=== PATIENT | female | born 1985 | race African-American/Black ===

== ENCOUNTER 2018-01-06 09:35 | Emergency (ER) | payer OTHER ==
[2018-01-06 09:55] LABS: URINE HCG POC HCG NEGATIVE (Negative)
[2018-01-06 09:55] LABS: BILIRUBIN,URINE NEGATIVE (NEG); CLARITY,URINE CLEAR; COLOR,URINE YELLOW; GLUCOSE,URINE NEGATIVE (NEG); NITRITE,URINE NEGATIVE (NEG); PROTEIN,URINE 30 mg/dL (NEG-TRACE)
[2018-01-06 10:06] LABS: BACTERIA,URINE FEW /HPF (0-FEW); RBC,URINE 20-40 /HPF (0-2); SQUAMOUS EPITHELIAL CELL,UR MOD /LPF
== END 2018-01-06 10:58 | disposition home or self-care (01) ==
LOC: ER 09:35
DX: R31.9 Hematuria, unspecified (principal); R35.0 Frequency of micturition; R39.15 Urgency of urination; Z88.0 Allergy status to penicillin; Z88.2 Allergy status to sulfonamides; F32.9 Major depressive disorder, single episode, unspecified; Z90.49 Acquired absence of other specified parts of digestive tract
CPT/HCPCS: 81001; 81025; 99283

== ENCOUNTER 2018-07-25 11:44 | Emergency (ER) | payer OTHER ==
[~2018-07-25] VITALS: Ht 162.6 cm; Wt 124.7 kg
[2018-07-25 11:45] VITALS: BP 143/95
[2018-07-25 12:40] LABS: INFLUENZA B PATIENT NEGATIVE (NEGATIVE)
[2018-07-25 12:42] LABS: INFLUENZA A PATIENT POSITIVE (NEGATIVE)
[2018-07-25] MEDS ORDERED: IBUP-1060 PO (13:07)
--- NOTE | 2018-07-25 13:08 | PHYS DOC ---
Past Medical History Past Medical History: Depression Past Surgical History: Cholecystectomy Alcohol Use: None Drug Use: None Adult General Chief Complaint Chief Complaint: FLU SYMPTOM HPI HPI Patient is a 32 year old female who presents to the ER with complaints of fever , cough, congestion, body aches, and fatigue that began today. Pt states that her children were diagnosed with influenza recently. She denies any shortness of breath, nausea, vomiting, diarrhea, or abdominal pain. Pt reports that she took 1 gm of tylenol about 30 minutes before coming to the ER. Review of Systems Review of Systems Constitutional: reports fever, chills, bodyaches, and fatigue Eyes: Denies change in visual acuity or eye pain [] HENT: Denies ear pain or sore throat, reports nasal congestion Respiratory: Denies wheezing or shortness of breath; see HPI Cardiovascular: No additional information not addressed in HPI [] GI: Denies abdominal pain, nausea, vomiting, or diarrhea [] Musculoskeletal: reports body aches Integument: Denies rash or skin lesions [] Neurologic: Denies headache, focal weakness or sensory changes [] Allergies Allergies Allergies Coded Allergies Type Severity Reaction Last Updated Verified Penicillins Allergy Unknown 01/06/18 Yes Sulfa (Sulfonamide Antibiotics) Allergy Unknown 01/06/18 Yes Physical Exam Physical Exam Constitutional: Well developed, well nourished, no acute distress, ill appearing , obese HENT: Normocephalic, atraumatic, bilateral external ears normal, oropharynx moist, cobblestone appearance of posterior pharynx, no oral exudates, nose normal. [] Eyes: PERRLA, conjunctiva injected, no discharge. [] Neck: Normal range of motion, supple, no stridor. [] Cardiovascular:Heart rate regular rhythm, no murmur [] Lungs & Thorax: Bilateral breath sounds clear to auscultation [] Skin: Warm, dry, no erythema, no rash. [] Extremities: No cyanosis, no clubbing, ROM intact Neurologic: Alert and oriented X 3, normal motor function, normal sensory function, no focal deficits noted. [] Psychologic: Affect normal, judgement normal, mood normal. [] Current Patient Data Vital Signs Vital Signs Date Time Temp Pulse Resp B/P (MAP) Pulse Ox O2 Delivery O2 Flow Rate FiO2 07/25/18 11:45 98.9 115 18 143/95 (111) 100 Room Air 98.9 Lab Values Laboratory Tests Test 07/25/18 12:09 Influenza Type A Antigen Positive (NEGATIVE) Influenza Type B Antigen Negative (NEGATIVE) EKG EKG [] Radiology/Procedures Radiology/Procedures influenza A positive[] Course & Med Decision Making Course & Med Decision Making Pertinent Labs and Imaging studies reviewed. (See chart for details) [] Dragon Disclaimer Dragon Disclaimer This electronic medical record was generated, in whole or in part, using a voice recognition dictation system. Departure Departure Impression: Primary Impression: Influenza A Disposition: HOME, SELF-CARE Condition: STABLE Referrals: NO PCP (PCP) Patient Instructions: Influenza A (H1N1) Additional Instructions: Fill prescription(s) and use as directed. Recommend use of a Cool mist humidifier in room at bedtime. Alternate Tylenol or ibuprofen as needed for pain /fever. Increase clear fluids. Avoid airway triggers such as smoke, fragrance, dust, and pollen. May take [id number] cough suppressants as needed. Follow -up with your primary care doctor if symptoms persist, return to the ER if symptoms worsen. Scripts Ibuprofen (IBUPROFEN) 800 Mg Tablet 800 MG PO PRN Q6HRS PRN for INFLAMMATION for 5 Days, #40 TAB 0 Refills Prov: CAMILA SOSA APRN 07/25/18 CAMILA SOSA APRN Jul 25, 2018 13:08
== END 2018-07-25 13:12 | disposition home or self-care (01) ==
LOC: ER 11:44
DX: J10.1 Influenza due to other identified influenza virus with other respiratory manifestations (principal); Z88.0 Allergy status to penicillin; Z88.2 Allergy status to sulfonamides
CPT/HCPCS: 87804; 99283

== ENCOUNTER 2019-12-04 16:23 | Emergency (ER) | payer BC, MEDICAID ==
[~2019-12-04] VITALS: Ht 162.6 cm; Wt 134.0 kg
[~2019-12-04 16:23] MED LIST: IBUP-1060 PO
[2019-12-04] MEDS ORDERED: IV NORMAL SALINE 1000ML BAG 1,000 ML IV ONE (16:45)
[2019-12-04 16:58] LABS: BILIRUBIN,URINE NEGATIVE (NEG); CLARITY,URINE CLEAR; COLOR,URINE YELLOW; NITRITE,URINE NEGATIVE (NEG); PH,URINE 7.5 (<5.0-8.0); PROTEIN,URINE NEGATIVE (NEG-TRACE)
[2019-12-04 17:04] LABS: BARBITURATES NEG (NEG); BENZODIAZEPINES NEG (NEG); CANNABINOIDS NEG (NEG); COCAINE NEG (NEG); METHADONE NEG (NEG); OPIATES NEG (NEG); PHENCYCLIDINE NEG (NEG)
[2019-12-04 17:06] LABS: BACTERIA,URINE FEW /HPF (0-FEW); RBC,URINE RARE /HPF (0-2); SQUAMOUS EPITHELIAL CELL,UR MANY /LPF
--- NOTE | 2019-12-04 17:06 | PHYS DOC ---
Past Medical History Past Medical History: Depression Past Surgical History: Cholecystectomy Smoking Status: Never Smoker Alcohol Use: None Drug Use: None General Adult EDM: Chief Complaint: DEHYDRATION HPI: HPI: Patient is a 34 year old female who presents with states she was moving to a different home and been out in the heat a lot and Monday started having nausea and vomiting. She states that Monday she started feeling better but was a bit nauseated but is drinking plenty of fluids and is eating and keeping everything down. She states she has not vomited since Monday night. She states she is just getting the occasional hot flash and states that she just feels dehydrated. She states every now and then she will get the palpitations with a hot flash. Patient states she is feeling much better. She denies pain, abdominal pain, new nausea, new vomiting, chest pain, shortness of air, fever, cough, dysuria, dizziness, headache, vision changes, LOC, numbness or tingling. Review of Systems: Review of Systems: Constitutional: Denies fever or chills. Hot flashes [] Eyes: Denies change in visual acuity. [] HENT: Denies nasal congestion or sore throat. [] Respiratory: Denies cough or shortness of breath. [] Cardiovascular: Denies chest pain or edema. Palpitations [] GI: Denies abdominal pain.+ nausea, +vomiting, denies bloody stools or diarrhea. [] : Denies dysuria. [] Musculoskeletal: Denies back pain or joint pain. [] Integument: Denies rash. [] Neurologic: Denies headache, focal weakness or sensory changes. [] Endocrine: Denies polyuria or polydipsia. [] Lymphatic: Denies swollen glands. [] Psychiatric: Denies depression or anxiety. [] Heart Score: HEART Score for Chest Pain: HEART Score for Chest Pain Response (Comments) Value History Slighlty/Non-Suspicious 0 ECG Normal 0 Age < 45 0 Risk Factors 1 or 2 Risk Factors 1 Troponin < Normal Limit 0 Total 1 Risk Factors: Risk Factors: DM, Current or recent (<one month) smoker, HTN, HLP, family history of CAD, obesity. Risk Scores: Score 0 - 3: 2.5% MACE over next 6 weeks - Discharge Home Score 4 - 6: 20.3% MACE over next 6 weeks - Admit for Clinical Observation Score 7 - 10: 72.7% MACE over next 6 weeks - Early Invasive Strategies Current Medications: Current Medications Medications (Trade) Dose Ordered Sig/Ai Start Time Stop Time Status Last Admin Dose Admin Sodium Chloride 1,000 ml @ 1,000 mls/hr 1X ONCE 12/04/19 16:45 12/04/19 17:44 Allergies: Allergies: Allergies Coded Allergies Type Severity Reaction Last Updated Verified Penicillins Allergy Unknown 01/06/18 Yes Sulfa (Sulfonamide Antibiotics) Allergy Unknown 01/06/18 Yes Physical Exam: PE: Constitutional: Well developed, well nourished, no acute distress, non-toxic appearance. [] HENT: Normocephalic, atraumatic, bilateral external ears normal, oropharynx moist, no oral exudates, nose normal. [] Eyes: PERRLA, EOMI, conjunctiva normal, no discharge. [] Neck: Normal range of motion, no tenderness, supple, no stridor. [] Cardiovascular:Heart rate regular tachycardic rhythm, no murmur [] Lungs & Thorax: Bilateral breath sounds clear to auscultation [] Abdomen: Bowel sounds normal, soft, no tenderness, no masses, no pulsatile masses. [] Skin: Warm, dry, no erythema, no rash. [] Back: No tenderness, no CVA tenderness. [] Extremities: No tenderness, no cyanosis, no clubbing, ROM intact, no edema. [] Neurologic: Alert and oriented X 3, normal motor function, normal sensory function, no focal deficits noted. [] Psychologic: Affect normal, judgement normal, mood normal. [] Current Patient Data: Labs: Laboratory Tests Test 12/04/19 16:50 POC Urine HCG, Qualitative Hcg negative (Negative) Vital Signs: Vital Signs Date Time Temp Pulse Resp B/P (MAP) Pulse Ox O2 Delivery O2 Flow Rate FiO2 12/04/19 16:35 98.7 105 16 156/92 (113) 99 Room Air 98.7 EKG: EK and read by Dr Mehta as Sinus Rhythm and no STEMI[] Radiology/Procedures: Radiology/Procedures: [] Impression: [facility] [address] [place] [address] IMAGING REPORT Signed PATIENT: ANNE-MARIE ALEJANDRESHANECCOUNT: [id number] : 1985 LOCATION: ER AGE: 34 SEX: F EXAM STATUS: REG ER ORD. PHYSICIAN: LORRI ACHARYA APRN REASON: nausea, vomitng, palpitations PROCEDURE: ACUTE ABDOMEN SERIES EXAM: 2 VIEW ABDOMEN WITH ONE VIEW CHEST. HISTORY: Nausea, vomiting, palpitations. COMPARISON: None. FINDINGS: A frontal view of the chest and supine/upright views of the abdomen are obtained. There are no confluent infiltrates. There is no pneumothorax or pleural effusion. The heart is not enlarged. The aortic arch is right-sided. Cholecystectomy clips are noted. There is no pneumoperitoneum. There are no distended small bowel loops or significant air-fluid levels. There is gas distally. Stool throughout the colon is consistent with constipation. IMPRESSION: 1. No confluent infiltrates. A right aortic arch is likely a normal variant. 2. No evidence of obstruction. Correlate for constipation. Electronically signed by: Mary Rojas MD (12/04/2019 6:28 PM) [facility] DICTATED and SIGNED BY: AMAN ROJAS MD DATE: 12/04/191827 Course & Med Decision Making: Course & Med Decision Making Pertinent Labs and Imaging studies reviewed. (See chart for details) Alert and oriented. Abdomen soft and nontender. Lungs are clear to all lobes. Patient is slightly tachycardic. No extremity edema. [] Dragon Disclaimer: Dragon Disclaimer: This electronic medical record was generated, in whole or in part, using a voice recognition dictation system. Departure Departure Impression: Primary Impression: Nausea & vomiting Qualified Codes: R11.2 - Nausea with vomiting, unspecified Additional Impression: Dehydration Disposition: HOME, SELF-CARE Condition: STABLE Referrals: ANDERS TRIPLETT (PCP) Patient Instructions: Constipation, Adult, Nausea and Vomiting Additional Instructions: Drink plenty of fluids. Stay out of the heat as much as possible. 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
[2019-12-04 17:08] LABS: BASO # 0.1 x10^3/uL (0.0-0.2); BASO % 1 % (0-3); EOS # 0.1 x10^3/uL (0.0-0.7); EOS % 1 % (0-3); HEMATOCRIT 33.5 % (36.0-47.0); HEMOGLOBIN 11.3 g/dL (12.0-15.5); LYMPH # 3.8 x10^3/uL (1.0-4.8); LYMPH % 39 % (24-48); MEAN CORPUSCULAR HEMOGLOBIN 26 pg (25-35); MEAN CORPUSCULAR HGB CONC 34 g/dL (31-37); MEAN CORPUSCULAR VOLUME 77 fL (79-100); MONO # 0.6 x10^3/uL (0.0-1.1); MONO % 6 % (0-9); NEUT # 5.2 x10^3/uL (1.8-7.7); NEUT % 53 % (31-73); PLATELET COUNT 364 x10^3/uL (140-400); RED BLOOD COUNT 4.36 x10^6/uL (3.50-5.40); RED CELL DISTRIBUTION WIDTH 16.3 % (11.5-14.5); WHITE BLOOD COUNT 9.7 x10^3/uL (4.0-11.0)
[2019-12-04 17:08] LABS: AMPHETAMINE/METHAMPHETAMINE NEG (NEG)
[2019-12-04 17:31] LABS: CALCIUM 9.1 mg/dL (8.5-10.1); CREATININE 0.8 mg/dL (0.6-1.0); GFR 99.4; POTASSIUM 3.8 mmol/L (3.5-5.1)
[2019-12-04 17:40] LABS: ALBUMIN 3.6 g/dL (3.4-5.0); ALBUMIN/GLOBULIN RATIO 0.8 (1.0-1.7); TOTAL BILIRUBIN 0.2 mg/dL (0.2-1.0); TOTAL PROTEIN 8.1 g/dL (6.4-8.2)
[2019-12-04 18:30] VITALS: BP 137/84
--- NOTE | 2019-12-04 18:31 | RAD ---
EXAM: 2 VIEW ABDOMEN WITH ONE VIEW CHEST. HISTORY: Nausea, vomiting, palpitations. COMPARISON: None. FINDINGS: A frontal view of the chest and supine/upright views of the abdomen are obtained. There are no confluent infiltrates. There is no pneumothorax or pleural effusion. The heart is not enlarged. The aortic arch is right-sided. Cholecystectomy clips are noted. There is no pneumoperitoneum. There are no distended small bowel loops or significant air-fluid levels. There is gas distally. Stool throughout the colon is consistent with constipation. IMPRESSION: 1. No confluent infiltrates. A right aortic arch is likely a normal variant. 2. No evidence of obstruction. Correlate for constipation. Electronically signed by: Mary Rojas MD (12/04/2019 6:28 PM) [facility]
[2019-12-04] MEDS ORDERED: DOCU-109 PO (18:35)
--- NOTE | 2019-12-05 06:00 | EKG ---
[facility] [address] [place] [address] Test Date: 2019-12-04 Test Time: 17:25:56 Pat Name: QUINTON ALEJANDRE Department: Room: Gender: F Shipping Services Sales Representative: : 1985 Requested By: LORRI ACHARYA Order Number: [id number] Reading MD: Measurements Intervals [place] Rate: 97 P: 56 VA: 120 QRS: -26 QRSD: 84 T: -28 QT: 352 QTc: 451 Interpretive Statements SINUS RHYTHM LEFTWARD AXIS T ABNORMALITY IN INFERIOR LEADS ABNORMAL ECG RI6.02 No previous ECG available for comparison
[2019-12-05] MEDS ORDERED: HYDR25CA75 PO (22:17)
== END 2019-12-04 18:49 | disposition home or self-care (01) ==
LOC: ER 16:23
DX: R11.2 Nausea with vomiting, unspecified (principal); E86.0 Dehydration; R00.2 Palpitations; F32.9 Major depressive disorder, single episode, unspecified; Z90.49 Acquired absence of other specified parts of digestive tract; Z88.0 Allergy status to penicillin; Z88.2 Allergy status to sulfonamides
CPT/HCPCS: 36415; 74022; 80053; 80307; 81001; 81025; 82550; 83690; 84443; 84484; 85025; 87086; 93005; 96360; 99285; G0480; J7030

== ENCOUNTER 2019-12-05 20:58 | Emergency (ER) | payer BC, MEDICAID ==
[~2019-12-05] VITALS: Ht 165.1 cm; Wt 100.0 kg
[~2019-12-05 20:58] MED LIST changes: +DOCU-109 PO
[2019-12-05 21:17] VITALS: BP 187/92
[2019-12-05] MEDS ORDERED: HYDR25CA75 PO (22:17)
--- NOTE | 2019-12-05 22:20 | PHYS DOC ---
Past Medical History Past Medical History: Depression Past Surgical History: Cholecystectomy Smoking Status: Never Smoker Alcohol Use: None Drug Use: None General Adult EDM: Chief Complaint: OTHER COMPLAINTS HPI: HPI: 34-year-old female past medical history significant for hypertension, anxiety depression, takes Paxil, presents to the ED with complaints of intermittent episodes of palpitations, racing thoughts and hot flashes for the past week. Patient states she has had difficulty sleeping due to this. Came in because she is requesting to be tested for her thyroid. Patient states an ER doctor put her on metoprolol in the past and is requesting this medication. Is currently asymptomatic. Patient does report she was here yesterday because she felt dehydrated and vomited 5 days prior. Also was complaining of constipation was prescribed Colace but has had had a normal bowel movement since then. Review of systems: Denies associated fever, chills, cough, dyspnea, sore throat, nausea, vomiting, syncope, head injury, neck pain, diaphoresis, pain pressure heaviness or tightness, hemoptysis, leg swelling, rash or neuro deficits. Allergies: Allergies: Allergies Coded Allergies Type Severity Reaction Last Updated Verified Penicillins Allergy Unknown 01/06/18 Yes Sulfa (Sulfonamide Antibiotics) Allergy Unknown 01/06/18 Yes Physical Exam: PE: Constitutional: Well developed, well nourished, no acute distress, non-toxic appearance. obese HENT: Normocephalic, atraumatic, bilateral external ears normal, oropharynx moist, no oral exudates, nose normal. [] Eyes: PERRLA, EOMI, conjunctiva normal, no discharge. [] Neck: Normal range of motion, no tenderness, supple, no stridor. [] Cardiovascular:Heart rate regular rhythm, no murmur [] Lungs & Thorax: Bilateral breath sounds clear to auscultation [] Abdomen: Bowel sounds normal, soft, no tenderness, no masses, no pulsatile masses. [] Skin: Warm, dry, no erythema, no rash. [] Back: No tenderness, no CVA tenderness. [] Extremities: No tenderness, no cyanosis, no clubbing, ROM intact, no edema. [] Neurologic: Alert and oriented X 3, normal motor function, normal sensory function, no focal deficits noted. [] Psychologic: Affect normal, judgement normal, very anxious in ed Current Patient Data: Labs: Laboratory Tests Test 12/05/19 21:33 POC Urine HCG, Qualitative Hcg negative (Negative) Vital Signs: Vital Signs Date Time Temp Pulse Resp B/P (MAP) Pulse Ox O2 Delivery O2 Flow Rate FiO2 12/05/19 21:17 98.2 99 18 187/92 (123) 98 Room Air 98.2 EKG: EKG: [] Radiology/Procedures: Radiology/Procedures: [] Impression: Concern for panic disorder in a well-appearing female, I do recommend outpatient testing for thyroid. No concern for life-threatening processes including thyroid storm or syncope or pulmonary emboli. Will prescribe short dose of Atarax for symptom relief and have patient follow-up with her primary care physician. EKG reviewed by myself with no STEMI/acute ischemia. Encouraged urgent PMD and psychiatry follow-up for medication management. Strict ED return precautions given for SI, HI, shortness of breath or chest pain. All patient's questions were answered and she was stable at time of discharge. Course & Med Decision Making: Course & Med Decision Making Pertinent Labs and Imaging studies reviewed. (See chart for details) [] Dragon Disclaimer: Dragon Disclaimer: This electronic medical record was generated, in whole or in part, using a voice recognition dictation system. Departure Departure Impression: Primary Impression: Anxiety Additional Impressions: Heart palpitations Hot flashes Disposition: 01 HOME, SELF-CARE Condition: STABLE Referrals: ANDERS TRIPLETT (PCP) Patient Instructions: Anxiety and Panic Attacks, Palpitations Additional Instructions: EMERGENCY DEPARTMENT GENERAL DISCHARGE INSTRUCTIONS Thank you for coming to [facility] Emergency Department (ED) today and trusting us with you care. We trust that you had a positivie experience in our Emergency Department. If you wish to speak to the department management, you may call the sirector at [phone]. YOUR FOLLOW UP INSTRUCTIONS ARE FOLLOWS: 1. Do you have a private Doctor? If you do not have a private doctir, please ask for a resource list of physicians or clinics that may be able to assist you with follow up care. 2. The Emergency Physicain has interpreted your x-rays. The X-Ray specialist will also review them. If there is a change in the findingd, you will be notified in 48 hours when at all possible. 3. A lab test or culture has been done, your results will be reviewed and you will be notified if you need a change in treatment. ADDITIONAL INSTRUCTIONS AND INFORMATION: 1. Your care today has been supervised by a physician who is specially trained in emergency care. Many problems require more than one evaluation for a complete diagnosis and treatment. We recommend that you schedule your follow up appointment as recommended to ensure complete treatment of you illness or injury. If you are unable to obtain follow up care and continue to have a problem, or if your consition worsens, we recommend that you return to the ED. 2. We are not able to safelymdetermine your condition over the phone nor are we able to give sound medical advice over the phone. For these safety reasons, if you call for medical advice we will ask you to come to the ED for further evaluation. 3. If you have any questions regarding these discharge instructions please call the ED at [phone]. SAFETY INFORMATION: In the interest of safety, wellness, and injury prevention; we encourage you to wear your sealbelt, if you smoke; quite smoking, and we encourage family to use a protective helmet for bicycling and other sporting events that present an increased risk for head injusry. IF YOUR SYMPTOMS WORSEN OR NEW SYMPTOMS DEVELOP, OR YOU HAVE CONCERNS ABOUT YOUR CONDITION; OR IF YOUR CONDITION WORSENS WHILE YOU ARE WAITING FOR YOUR FOLLOW UP APPOINTMENT; EITHER CONTACT YOUR PRIMARY CARE DOCTOR, THE PHYSICIAN WHOSE NAME AND NUMBER YOU WERE GIVEN, OR RETURN TO THE ED IMMEDIATELY. Scripts Hydroxyzine Pamoate (HYDROXYZINE PAMOATE) 25 Mg Capsule 1 CAP PO TID PRN for ANXIETY / AGITATION, #20 CAP Prov: SALVATORE JIMENEZ DO 12/05/19 Justicifation of Admission Dx: Justifications for Admission: Justification of Admission Dx: N/A SALVATORE JIMENEZ DO Dec 05, 2019 22:20
[2019-12-05] MEDS ORDERED: hydrOXYzine 25 MG TABLET PO ONE (23:00)
--- NOTE | 2019-12-09 15:59 | EKG ---
[facility] [address] [place] [address] Test Date: 2019-12-05 Test Time: 21:44:07 Pat Name: QUINTON ALEJANDRE Department: Room: Gender: F Copy Center Operator: : 1985 Requested By: SALVATORE JIMENEZ Order Number: [id number] Reading MD: Measurements Intervals [place] Rate: 90 P: 48 HI: 124 QRS: -26 QRSD: 82 T: -88 QT: 342 QTc: 422 Interpretive Statements SINUS RHYTHM LEFTWARD AXIS QRS(T) CONTOUR ABNORMALITY CONSIDER ANTEROLATERAL MYOCARDIAL DAMAGE ST & T ABNORMALITY, CONSIDER INFERIOR ISCHEMIA OR LEFT VENTRICULAR STRAIN ABNORMAL ECG RI6.01 No previous ECG available for comparison
== END 2019-12-05 22:44 | disposition home or self-care (01) ==
LOC: ER 20:58
DX: F41.9 Anxiety disorder, unspecified (principal); R00.2 Palpitations; N95.1 Menopausal and female climacteric states; I10 Essential (primary) hypertension; E86.0 Dehydration; R11.10 Vomiting, unspecified; Z88.0 Allergy status to penicillin; Z88.2 Allergy status to sulfonamides
CPT/HCPCS: 81025; 93005; 99283

== ENCOUNTER 2021-04-22 06:46 | Emergency (ER) | payer BC, MEDICAID ==
[~2021-04-22] VITALS: Ht 162.6 cm; Wt 135.3 kg
[~2021-04-22 06:46] MED LIST changes: +HYDR25CA75 PO
[2021-04-22 07:03] VITALS: BP_DIAS 93
--- NOTE | 2021-04-22 07:22 | PHYS DOC ---
Past Medical History Past Medical History: Anxiety, Depression Past Surgical History: Cholecystectomy Smoking Status: Never Smoker Alcohol Use: None Drug Use: None General Adult EDM: Chief Complaint: SORE THROAT HPI: HPI: Patient is a 35 year old female with history of depression/anxiety who presents with 4 days of sore throat and subjective fevers. Has not measured a temp at home, but has had some cold sweats and hot flashes. She started taking Tylenol, ibuprofen, and occasional Excedrin 2 days ago. Also started taking clindamycin that she had leftover at home 2 days ago. Earlier this morning felt like it was painful to move her neck, but after taking Excedrin she no longer has that pain. She has had strep in the past. It does feel similar to her previous strep infection Has also had Covid, but states this does not feel similar to her Covid infection. Is not vaccinated. Denies any cough, shortness of breath, loss of taste/smell, N/V. Review of Systems: Review of Systems: Constitutional: Reports subjective fever and chills [] Eyes: Denies change in visual acuity. [] HENT: Reports nasal congestion and sore throat [] Respiratory: Denies cough or shortness of breath. [] Cardiovascular: Denies chest pain or edema. [] GI: Denies abdominal pain, nausea, vomiting, bloody stools or diarrhea. [] : Denies dysuria. [] Musculoskeletal: Denies back pain or joint pain. [] Integument: Denies rash. [] Neurologic: Denies headache, focal weakness or sensory changes. [] Endocrine: Denies polyuria or polydipsia. [] Lymphatic: Denies swollen glands. [] Psychiatric: Denies depression or anxiety. [] Heart Score: C/O Chest Pain: No Risk Factors: Risk Factors: DM, Current or recent (<one month) smoker, HTN, HLP, family history of CAD, obesity. Risk Scores: Score 0 - 3: 2.5% MACE over next 6 weeks - Discharge Home Score 4 - 6: 20.3% MACE over next 6 weeks - Admit for Clinical Observation Score 7 - 10: 72.7% MACE over next 6 weeks - Early Invasive Strategies Allergies: Allergies: Allergies Coded Allergies Type Severity Reaction Last Updated Verified Penicillins Allergy Intermediate 12/05/19 Yes Sulfa (Sulfonamide Antibiotics) Allergy Intermediate 12/05/19 Yes Physical Exam: PE: Constitutional: Well developed, well nourished, no acute distress, non-toxic appearance. [] HENT: Oropharyngeal erythema, no edema. Uvula midline. No peritonsillar fullness. Bilateral tonsillar exudates present. Mild tender anterior lymphadenopathy. No posterior lymphadenopathy. Moves neck freely, without evidence of pain/distress. Eyes: conjunctiva normal, no discharge. [] Neck: Normal range of motion, no tenderness, supple, no stridor. [] Cardiovascular:Heart rate regular rhythm, no murmur [] Lungs & Thorax: Bilateral breath sounds clear to auscultation [] Abdomen: Bowel sounds normal, soft, no tenderness, no masses, no pulsatile masses. [] Skin: Warm, dry, no erythema, no rash. [] Back: No tenderness, no CVA tenderness. [] Extremities: No tenderness, no cyanosis, no clubbing, ROM intact, no edema. [] Neurologic: Alert and oriented X 3, normal motor function, normal sensory function, no focal deficits noted. [] Psychologic: Affect normal, judgement normal, mood normal. [] Current Patient Data: Vital Signs: Vital Signs Date Time Temp Pulse Resp B/P (MAP) Pulse Ox O2 Delivery O2 Flow Rate FiO2 04/22/21 07:03 98.7 117 17 195/93 (127) 100 Room Air 98.7 EKG: EKG: [] Radiology/Procedures: Radiology/Procedures: [] Course & Med Decision Making: Course & Med Decision Making Pertinent Labs and Imaging studies reviewed. (See chart for details) Patient is a 35-year-old female presents with 4 days of sore throat and subjective fevers. Well-appearing on examination. No evidence of deep space infection of the neck. Do not feel she requires CT imaging. Bilateral tonsillar exudates. Will test for strep and mononucleosis. No cough or shortness of breath to suggest a lower respiratory infection such as Covid and influenza. Offered testing for both of these, but patient declined. 0721 Rapid strep negative. Culture will be sent to lab. Monospot negative. Will advise continued conservative management with tylenol/ibuprofen. Discussed return precautions. [id number] Edwina Disclaimer: Edwina Disclaimer: This electronic medical record was generated, in whole or in part, using a voice recognition dictation system. Departure Departure Impression: Primary Impression: Exudative pharyngitis Referrals: ANDERS TRIPLETT (PCP) Patient Instructions: Viral Pharyngitis Additional Instructions: Your strep test and mononucleosis test were negative. The strep test will be sent to our lab for a culture, and if this is positive you should get a call within the next 48 hours. In the meantime I would continue to take Tylenol and ibuprofen for pain control, and this should improve on its own. For pain tylenol and ibuprofen are best used on a schedule. Please alternate between the two. -Tylenol 1000 mg every 6 hours (do not exceed 4000 mg in one day) -Ibuprofen 400 mg every 6 hours. Take with food. Do not take for more than 1 week. If you develop worsening neck pain, severe pain with head/neck movements, shortness of breath, noisy breathing, pain/difficulty opening your mouth or other new/concerning symptoms please return to the emergency department for reevaluation. AMAN DIEHL MD Apr 22, 2021 07:22
[2021-04-22 07:44] LABS: MONONUCLEOSIS PATIENT NEGATIVE (NEGATIVE)
[2021-04-22 08:14] VITALS: BP_SYST 162
== END 2021-04-22 08:14 | disposition home or self-care (01) ==
LOC: ER 06:46
DX: J02.9 Acute pharyngitis, unspecified (principal); R09.81 Nasal congestion; Z88.0 Allergy status to penicillin; Z88.2 Allergy status to sulfonamides
CPT/HCPCS: 86308; 87070; 87880; 99283